=== PATIENT | female | born 1985 | race American Indian/Alaskan Native ===

== ENCOUNTER 2017-06-25 10:15 | Outpatient (CLI) | payer MEDICAID | END 2017-06-25 10:16 | disposition critical access hospital (66) | LOC: EMS 10:15 | PROVIDERS: ATTEND Surgery | DX: M79.622 Pain in left upper arm (principal); R07.89 Other chest pain; R11.10 Vomiting, unspecified | CPT/HCPCS: A0425; A0429 ==

== ENCOUNTER 2017-06-25 10:35 | Emergency (ER) | payer MEDICAID ==
[2017-06-25 11:25] LABS: HCT - HEMATOCRIT 34.1 % (37.0-47.0); HGB - HEMOGLOBIN 11.6 g/dL (12.0-16.0); MEAN CORPUSCULAR HEMOGLOBIN 29.5 pg (27.0-31.0); MEAN PLATELET VOLUME 8.3 fL (7.9-10.8); RED BLOOD COUNT 3.92 10^6/uL (4.20-5.40); WHITE BLOOD COUNT 9.9 x10^3/uL (4.8-10.8)
[2017-06-25 11:37] LABS: ALBUMIN/GLOBULIN RATIO 1.1 (1.0-2.2); BILIRUBIN,TOTAL 1.2 mg/dL (0.2-1.0); BUN - BLOOD UREA NITROGEN 17 mg/dL (6-20); CALCIUM 9.2 mg/dL (8.5-10.3); CARBON DIOXIDE - CO2 23 mmol/L (21-32); CHLORIDE 103 mmol/L (101-111); CREATININE 0.6 mg/dL (0.4-1.0); GFR - MDRD 117 (>89); GLUCOSE 89 mg/dL (70-100); LIPASE 27 U/L (22-51); POTASSIUM 3.3 mmol/L (3.5-5.0); SALICYLATE < 6.0 mg/dL; SODIUM 142 mmol/L (135-145); TOTAL PROTEIN 7.8 g/dL (6.7-8.2)
[2017-06-25 11:40] LABS: ACETAMINOPHEN < 10 ug/mL (10-30)
[2017-06-25] MEDS ORDERED: ONDANSETRON ODT 4 MG TABLET TL STA ×3 (11:40→16:16)
[2017-06-25] MEDS ORDERED: DEXAMETHASONE 10 MG/ML VIAL PO STA (11:46)
[2017-06-25] MEDS ORDERED: LORazepam 2 MG/ML VIAL IM STA (11:46)
--- NOTE | 2017-06-25 11:50 | ED Physician Documentation ---
History of Present Illness - Stated complaint Stated Complaint: L ARM CYST - Chief complaint Chief Complaint: General - History obtained from History obtained from: Patient, EMS - History of Present Illness Timing: How many days ago (3) - Additonal information Additional information: 32-year-old homeless heroin addicted female comes to the emergency department today with a red swollen lump on her left shoulder and feeling ill. She has recently developed congestion cough shortness of breath and loss of voice. She indicates that she has been in treatment and got out of treatment about 2 weeks ago. She admits to using methamphetamine today but denies use of narcotic today Review of Systems Constitutional: reports: Myalgias, Fatigue. denies: Fever Eyes: denies: Decreased vision Ears: denies: Ear pain Nose: reports: Rhinorrhea / runny nose, Congestion Throat: reports: Sore throat Cardiac: reports: Chest pain / pressure. denies: Palpitations Respiratory: reports: Dyspnea, Cough, Wheezing GI: reports: Abdominal Pain, Nausea, Vomiting : reports: Dysuria, Frequency Skin: reports: Lesions Musculoskeletal: reports: Extremity pain. denies: Neck pain, Back pain Neurologic: denies: Generalized weakness, Focal weakness, Numbness PD PAST MEDICAL HISTORY - Past Medical History Past Medical History: Yes - Past Surgical History General: Cholecystectomy - Present Medications Home Medications: Ambulatory Orders Medication Instructions Recorded Confirmed Amox/Clav 875/125 [Augmentin] 1 each PO Q12H #20 tablet 06/25/17 Lorazepam [Ativan] 1 mg PO Q6HR PRN #15 tablet 06/25/17 - Allergies Allergies/Adverse Reactions: Allergies Allergy/AdvReac Type Severity Reaction Status Date / Time trazodone Allergy Unknown Verified 06/25/17 10:49 - Social History Does the pt smoke?: Yes Does the pt drink ETOH?: No Does the pt have substance abuse?: Yes Substance Use and Type: Meth, Heroin PD ED PE NORMAL - Vitals Vital signs reviewed: Yes (hypertensive) - General General: Well developed/nourished, Other (32 y/o female wailing in pain and begging for help with a disorganized thought process. ) - HEENT HEENT: Atraumatic, PERRL, EOMI, Moist mucous membranes, Other (both TM's are inflamed the uvula is mildly inflamed) - Neck Neck: Supple, no meningeal sign, No bony TTP - Cardiac Cardiac: RRR, No murmur - Respiratory Respiratory: No respiratory distress, Clear bilaterally - Abdomen Abdomen: Soft, Non tender - Back Back: No CVA TTP, No spinal TTP - Derm Derm: Normal color, Warm and dry, No rash - Extremities Extremities: No deformity, No edema - Neuro Neuro: No motor deficit, No sensory deficit Eye Opening: Spontaneous Motor: Obeys Commands Verbal: Oriented GCS Score: 15 - Psych Psych: Normal mood, Normal affect Results - Vitals Vitals: Vital Signs - 24 hr 06/25/17 06/25/17 06/25/17 10:37 12:11 13:41 Temperature 36 C L 36.8 C 36.5 C Heart Rate 68 56 L 57 L Respiratory 20 20 16 Rate Blood Pressure 153/94 H 143/93 H 130/93 H O2 Saturation 96 99 98 06/25/17 06/25/17 06/25/17 14:39 16:08 16:54 Temperature 36.8 C 36.8 C Heart Rate 56 L 88 87 Respiratory 18 18 20 Rate Blood Pressure 143/98 H 145/100 H 134/93 H O2 Saturation 100 97 96 06/25/17 19:12 Temperature 36.5 C Heart Rate 55 L Respiratory 16 Rate Blood Pressure 138/92 H O2 Saturation 100 Oxygen O2 Source Room air - Labs Labs: Laboratory Tests 06/25/17 06/25/17 06/25/17 11:16 11:16 18:15 WBC 9.9 RBC 3.92 L Hgb 11.6 L Hct 34.1 L MCV 87.0 MCH 29.5 MCHC 34.0 RDW 13.0 Plt Count 250 MPV 8.3 Sodium 142 Potassium 3.3 L Chloride 103 Carbon Dioxide 23 Anion Gap 16.0 H BUN 17 Creatinine 0.6 Estimated GFR (MDRD) 117 Glucose 89 Calcium 9.2 Total Bilirubin 1.2 H AST 22 ALT 30 Alkaline Phosphatase 67 Total Protein 7.8 Albumin 4.0 Globulin 3.8 Albumin/Globulin Ratio 1.1 Lipase 27 Urine Color Urine Clarity Urine pH Ur Specific [place] Urine Protein Urine Glucose (UA) Urine Ketones Urine Occult Blood Urine Nitrite Urine Bilirubin Urine Urobilinogen Ur Leukocyte Esterase Urine RBC Urine WBC Ur Squamous Epith Cells Amorphous Sediment Urine Bacteria Ur Microscopic Review Urine Culture Comments Urine HCG, Qual Salicylates < 6.0 Urine Opiates Screen NEGATIVE Ur Oxycodone Screen NEGATIVE Urine Methadone Screen NEGATIVE Ur Propoxyphene Screen NEGATIVE Acetaminophen < 10 L Ur Barbiturates Screen NEGATIVE Ur Tricyclics Screen NEGATIVE Ur Phencyclidine Scrn NEGATIVE Ur Amphetamine Screen POSITIVE H U Methamphetamines Scrn POSITIVE H U Benzodiazepines Scrn POSITIVE H Urine Cocaine Screen NEGATIVE U Cannabinoids Screen NEGATIVE Ethyl Alcohol < 5.0 06/25/17 06/25/17 18:15 18:15 WBC RBC Hgb Hct MCV MCH MCHC RDW Plt Count MPV Sodium Potassium Chloride Carbon Dioxide Anion Gap BUN Creatinine Estimated GFR (MDRD) Glucose Calcium Total Bilirubin AST ALT Alkaline Phosphatase Total Protein Albumin Globulin Albumin/Globulin Ratio Lipase Urine Color DARK YELLOW Urine Clarity CLOUDY Urine pH 6.0 Ur Specific [place] 1.025 1.025 Urine Protein TRACE Urine Glucose (UA) NEGATIVE Urine Ketones >=80 H Urine Occult Blood TRACE-INTA Urine Nitrite POSITIVE H Urine Bilirubin NEGATIVE Urine Urobilinogen 1 (NORMAL) Ur Leukocyte Esterase TRACE H Urine RBC 6-10 H Urine WBC 6-10 H Ur Squamous Epith Cells FEW Squamous Amorphous Sediment Moderate Urine Bacteria Many H Ur Microscopic Review INDICATED Urine Culture Comments INDICATED Urine HCG, Qual NEGATIVE Salicylates Urine Opiates Screen Ur Oxycodone Screen Urine Methadone Screen Ur Propoxyphene Screen Acetaminophen Ur Barbiturates Screen Ur Tricyclics Screen Ur Phencyclidine Scrn Ur Amphetamine Screen U Methamphetamines Scrn U Benzodiazepines Scrn Urine Cocaine Screen U Cannabinoids Screen Ethyl Alcohol Procedures - Bedside sono Bedside sono by EMP: With use of bedside ultrasound the left shoulder mass is imaged there is no evidence of a fluid collection. PD MEDICAL DECISION MAKING - ED course Complexity details: reviewed results, re-evaluated patient, considered differential, d/w patient ED course: 32 y/o homeless female with a left shoulder cellulitis/abscess that is not ripe is altered when she arrives to the ED. She appears intoxicated on arrival. She is anxious and in pain and she is withdrawing. She is given zofran and ativan. She has BOM as well and she is given decadron 10mg PO and we have given ceftriaxone IM for the celluliltis. She has UTI as well. We will place her on some augmentin for the all three infections. During the patient's stay in the ED she arrived agitated and did well for hours with a 2mg dose of ativan IM. Over time she began to sober and had continued improvement. Her father was called for disposition and he was able to come to pick the patient up. Departure - Departure Disposition: 01 Home, Self Care Clinical Impression: Cellulitis and abscess of upper arm and forearm Otitis media Qualifiers: Otitis media type: suppurative Chronicity: acute Laterality: bilateral Recurrence: not specified as recurrent Spontaneous tympanic membrane rupture: without spontaneous rupture Qualified Code(s): H66.003 - Acute suppurative otitis media without spontaneous rupture of ear drum, bilateral Acute drug withdrawal syndrome Qualifiers: Complication of substance-induced condition: with unspecified complication Qualified Code(s): F19.239 - Other psychoactive substance dependence with withdrawal, unspecified Urinary tract infection Qualifiers: Urinary tract infection type: acute cystitis Hematuria presence: without hematuria Qualified Code(s): N30.00 - Acute cystitis without hematuria Condition: Stable Instructions: ED Staph Infec Abx Tx Only, ED Infec Skin Cellulitis, ED Otitis Media Acute Adult, ED UTI Cystitis Female Follow-Up: [facility] [Provider Group] Prescriptions: Lorazepam [Ativan] 1 mg PO Q6HR PRN #15 tablet PRN Reason: withdrawal symptoms Amox/Clav 875/125 [Augmentin] 1 each PO Q12H #20 tablet Discharge Date/Time: 06/25/17 19:41
[2017-06-25] MEDS ORDERED: CHERRY SYRUP 10 ML UDC PO ONE (11:56)
[2017-06-25] MEDS ORDERED: cefTRIAXone 1 GM VIAL IM STA (16:16)
[2017-06-25] MEDS ORDERED: LIDOCAINE 1% 2 ML VIAL ONE (16:29)
[2017-06-25 18:47] LABS: BILIRUBIN,URINE NEGATIVE (NEGATIVE); UA w/ MICROSCOPIC CHARGE YES
[2017-06-25 18:50] LABS: HCG UR QUAL NEGATIVE
[2017-06-25 18:53] LABS: UR CULTURE IF IND INDICATED
[2017-06-25] MEDS ORDERED: LORazepam 0.5 MG TABLET PO STA ×2 (18:58)
[2017-06-25 19:13] VITALS: BP 138/92
== END 2017-06-25 19:41 | disposition home or self-care (01) ==
LOC: ED 10:35
DX: L02.414 Cutaneous abscess of left upper limb (principal); L03.114 Cellulitis of left upper limb; H66.003 Acute suppurative otitis media without spontaneous rupture of ear drum, bilateral; N30.00 Acute cystitis without hematuria; F19.239 Other psychoactive substance dependence with withdrawal, unspecified; R45.1 Restlessness and agitation; F15.10 Other stimulant abuse, uncomplicated; Z72.0 Tobacco use; Z59.0 Homelessness
CPT/HCPCS: 36415; 80053; 80306; 80307; 80320; 80329; 81001; 81025; 83690; 85027; 87086; 96372; 99283; 99284; A9270; J2060; Q0162; 81003

== ENCOUNTER 2017-06-30 15:19 | Outpatient (CLI) | payer MEDICAID | END 2017-06-30 15:20 | disposition critical access hospital (66) | LOC: EMS 15:19 | PROVIDERS: ATTEND Surgery | DX: M79.622 Pain in left upper arm (principal); Z72.89 Other problems related to lifestyle | CPT/HCPCS: A0425; A0429 ==

== ENCOUNTER 2017-06-30 15:35 | Emergency (ER) | payer MEDICAID ==
[2017-06-30] MEDS ORDERED: SULFAMETH/TRIMETH DS 800/160 MG TABLET PO STA (16:01)
[2017-06-30] MEDS ORDERED: ONDANSETRON ODT 4 MG TABLET TL STA (16:01)
[2017-06-30] MEDS ORDERED: LORazepam 0.5 MG TABLET PO STA ×2 (16:01→23:08)
--- NOTE | 2017-06-30 16:02 | ED Physician Documentation ---
PD HPI NVD - Stated complaint Stated Complaint: GEN ILLNESS - Chief complaint Chief Complaint: General - History obtained from History obtained from: Patient, EMS - History of Present Illness Timing - onset: Today (feeling anxious, nauseated, and some shakiness c/w withdrawal from drugs. She says last use of drugs was yesterday (Heroin IV and smoked meth). Gets withdrawal symptoms significantly after 2 days without drugs and then cannot withstand symptoms and uses again. She says regular drug use for the past 2 months, frequent for almost 2 years prior to that. Last drug treatment was 2 years ago and was clean for just couple months. Had been having infection left shoulder recently too and this is improved but not completely better with still some drainage from it.) Timing - details: Gradual onset, Still present Associated symptoms: Loss of appetite, Other (nausea and shakiness.). No: Fever , Abdominal pain Contributing factors: Other (withdrawal from drugs (heroin and meth, last use yesterday).). No: Sick contact, Bad food, Diabetes Worsened by: Eating Similar symptoms before: Diagnosis (drug withdrawal) Recently seen: Emergency Dept Review of Systems Constitutional: denies: Fever, Chills Nose: denies: Rhinorrhea / runny nose, Congestion Throat: denies: Sore throat Cardiac: denies: Chest pain / pressure, Palpitations Respiratory: denies: Cough GI: reports: Nausea. denies: Abdominal Pain, Vomiting, Diarrhea : denies: Dysuria, Frequency, Discharge, Missed period Skin: reports: Lesions (left shoulder with some persistent mild drainage post I& D of abscess recently. Minimal redness of the area.). denies: Rash Musculoskeletal: denies: Neck pain, Back pain Neurologic: denies: Generalized weakness, Focal weakness, Numbness Endocrine: denies: Weight loss, Easy bruising / bleeding Immunocompromised: denies: Immunocompromised PD PAST MEDICAL HISTORY - Past Medical History Past Medical History: Yes Cardiovascular: None Respiratory: None Neuro: None Endocrine/Autoimmune: None - Past Surgical History General: Cholecystectomy - Present Medications Home Medications: Ambulatory Orders Medication Instructions Recorded Confirmed Amox/Clav 875/125 [Augmentin] 1 each PO Q12H #20 tablet 06/25/17 Lorazepam [Ativan] 1 mg PO Q6HR PRN #15 tablet 06/25/17 Lorazepam [Ativan] 1 mg PO Q8H PRN #20 tablet 06/30/17 Mupirocin 1 applic TP TID #15 oint...g. 06/30/17 Promethazine [Phenergan] 25 mg PO Q6H PRN #20 tab 06/30/17 Sulfamethox/Trimeth 800/160 1 each PO BID #10 tablet 06/30/17 [Bactrim Ds 800/160] cloNIDine [Catapres] 0.1 mg PO DAILY #6 tablet 06/30/17 - Allergies Allergies/Adverse Reactions: Allergies Allergy/AdvReac Type Severity Reaction Status Date / Time trazodone Allergy Unknown Verified 06/25/17 10:49 - Living Situation Living Arrangement: reports: Homeless - Social History Does the pt smoke?: Yes Smoking Status: Current every day smoker Does the pt drink ETOH?: No Does the pt have substance abuse?: Yes Substance Use and Type: Meth, Heroin - Family History Family history: reports: Non contributory PD ED PE NORMAL - Vitals Vital signs reviewed: Yes - General General: Alert and oriented X 3, No acute distress (but some slight anxiety), Well developed/nourished - HEENT HEENT: Ears normal, Pharynx benign - Neck Neck: Supple, no meningeal sign, No adenopathy - Cardiac Cardiac: RRR, No murmur - Respiratory Respiratory: Clear bilaterally - Abdomen Abdomen: Soft, Non tender - Female Female : Deferred - Rectal Rectal: Deferred - Back Back: No CVA TTP - Derm Derm: Normal color, Warm and dry, Other (left shoulder with minimal redness in small area (2-3 cm) without fluctuance; has small hole for drainage post I&D. No draiange right now. ) - Neuro Neuro: Alert and oriented X 3, No motor deficit, Normal speech - Psych Psych: Normal mood, Normal affect Results - Vitals Vitals: Vital Signs - 24 hr 06/30/17 06/30/17 06/30/17 15:39 17:16 20:52 Temperature 36.6 C Heart Rate 83 92 75 Respiratory 18 18 18 Rate Blood Pressure 132/84 H 115/84 H 110/68 O2 Saturation 100 100 99 Oxygen O2 Source Room air - Labs Labs: Laboratory Tests 06/30/17 06/30/17 06/30/17 16:40 16:40 17:55 WBC 6.9 RBC 3.95 L Hgb 11.5 L Hct 34.7 L MCV 87.8 MCH 29.1 MCHC 33.2 RDW 13.1 Plt Count 282 MPV 7.6 L Neut # 4.5 Lymph # 1.1 L [place] # 0.7 Eos # 0.5 Baso # 0.1 Absolute Nucleated RBC 0.00 Nucleated RBC % 0.0 Sodium 141 Potassium 3.5 Chloride 105 Carbon Dioxide 26 Anion Gap 10.0 BUN 7 Creatinine 0.5 Estimated GFR (MDRD) 144 Glucose 133 H Calcium 8.6 Total Bilirubin 0.3 AST 21 ALT 22 Alkaline Phosphatase 55 Total Protein 6.8 Albumin 3.3 Globulin 3.5 Albumin/Globulin Ratio 0.9 L Lipase 28 Urine Color Urine Clarity Urine pH Ur Specific [place] Urine Protein Urine Glucose (UA) Urine Ketones Urine Occult Blood Urine Nitrite Urine Bilirubin Urine Urobilinogen Ur Leukocyte Esterase Urine RBC Urine WBC Ur Squamous Epith Cells Amorphous Sediment Urine Bacteria Ur Microscopic Review Urine Culture Comments Urine HCG, Qual Salicylates < 6.0 Urine Opiates Screen NEGATIVE Ur Oxycodone Screen NEGATIVE Urine Methadone Screen NEGATIVE Ur Propoxyphene Screen NEGATIVE Acetaminophen < 10 L Ur Barbiturates Screen NEGATIVE Ur Tricyclics Screen NEGATIVE Ur Phencyclidine Scrn NEGATIVE Ur Amphetamine Screen POSITIVE H U Methamphetamines Scrn NEGATIVE U Benzodiazepines Scrn POSITIVE H Urine Cocaine Screen NEGATIVE U Cannabinoids Screen NEGATIVE Ethyl Alcohol < 5.0 06/30/17 17:55 WBC RBC Hgb Hct MCV MCH MCHC RDW Plt Count MPV Neut # Lymph # [place] # Eos # Baso # Absolute Nucleated RBC Nucleated RBC % Sodium Potassium Chloride Carbon Dioxide Anion Gap BUN Creatinine Estimated GFR (MDRD) Glucose Calcium Total Bilirubin AST ALT Alkaline Phosphatase Total Protein Albumin Globulin Albumin/Globulin Ratio Lipase Urine Color YELLOW Urine Clarity TURBID Urine pH 7.5 Ur Specific [place] 1.020 Urine Protein NEGATIVE Urine Glucose (UA) NEGATIVE Urine Ketones NEGATIVE Urine Occult Blood NEGATIVE Urine Nitrite NEGATIVE Urine Bilirubin NEGATIVE Urine Urobilinogen 1 (NORMAL) Ur Leukocyte Esterase TRACE H Urine RBC 0-5 Urine WBC 6-10 H Ur Squamous Epith Cells RARE Squamous Amorphous Sediment Marked Urine Bacteria Few Ur Microscopic Review INDICATED Urine Culture Comments INDICATED Urine HCG, Qual NEGATIVE Salicylates Urine Opiates Screen Ur Oxycodone Screen Urine Methadone Screen Ur Propoxyphene Screen Acetaminophen Ur Barbiturates Screen Ur Tricyclics Screen Ur Phencyclidine Scrn Ur Amphetamine Screen U Methamphetamines Scrn U Benzodiazepines Scrn Urine Cocaine Screen U Cannabinoids Screen Ethyl Alcohol PD MEDICAL DECISION MAKING - ED course Complexity details: reviewed results, re-evaluated patient (She has slept and felt okay while in ED after getting the Ativan PO. BP and HR okay on recheck. ) , considered differential, d/w patient, d/w [employer] consultant (Social Work is trying to get her into [facility], and they have bed available. They are reviewing the chart.), other (Patient accepted at [facility] and will need to provide taxi voucher from Nursing Sup to get her there, and provide some meds for overnight and Rxs for her withdrawal symptoms and skin infection. ) Departure - Departure Clinical Impression: Skin infection Drug withdrawal Qualifiers: Substance type: opioid Qualified Code(s): F11.23 - Opioid dependence with withdrawal Condition: Stable Record reviewed to determine appropriate education?: Yes Instructions: ED Withdrawal Narcotic Prescriptions: cloNIDine [Catapres] 0.1 mg PO DAILY #6 tablet Lorazepam [Ativan] 1 mg PO Q8H PRN #20 tablet PRN Reason: Anxiety Mupirocin 1 applic TP TID #15 oint...g. Promethazine [Phenergan] 25 mg PO Q6H PRN #20 tab PRN Reason: Nausea / Vomiting Sulfamethox/Trimeth 800/160 [Bactrim Ds 800/160] 1 each PO BID #10 tablet Comments: For the shoulder skin infection, clean it with soap and water twice daily and apply some mupirocin antibiotic ointment and covered with a dressing. Also take Bactrim twice daily for the next 5 days. Recheck if not completely healed during that time. For the substance abuse withdrawal (meth and heroin), take clonidine daily for the next week and also promethazine if needed for nausea. Use Ativan 1-2 mg initially every 8-12 hours and decrease to 1 mg twice a day when able to based on the withdrawal symptoms. The withdrawal should taper down and decrease over 3-5 days and he should be able to taper down the use of the Ativan during that time as well. Drink lots of fluids and stay well- hydrated. Eat well.
[2017-06-30 16:45] LABS: BASOPHILS # (AUTO) 0.1 10^3/uL (0.0-0.1); BASOPHILS % (AUTO) 0.7 %; EOSINOPHILS # (AUTO) 0.5 10^3/uL (0.0-0.7); EOSINOPHILS % (AUTO) 6.9 %; HCT - HEMATOCRIT 34.7 % (37.0-47.0); HGB - HEMOGLOBIN 11.5 g/dL (12.0-16.0); LYMPHOCYTES # (AUTO) 1.1 10^3/uL (1.5-3.5); LYMPHOCYTES % (AUTO) 16.3 %; MEAN CORPUSCULAR HEMOGLOBIN 29.1 pg (27.0-31.0); MEAN CORPUSCULAR HGB CONC 33.2 g/dL (32.0-36.0); MEAN CORPUSCULAR VOLUME 87.8 fL (81.0-99.0); MEAN PLATELET VOLUME 7.6 fL (7.9-10.8); MONOCYTES # (AUTO) 0.7 10^3/uL (0.0-1.0); NEUTROPHILS # (AUTO) 4.5 10^3/uL (1.5-6.6); NEUTROPHILS % (AUTO) 66.1 %; RED BLOOD COUNT 3.95 10^6/uL (4.20-5.40); RED CELL DISTRIBUTION WIDTH 13.1 % (12.0-15.0); UNCORRECTED WHITE BLOOD COUNT 6.9 x10^3/uL; WHITE BLOOD COUNT 6.9 x10^3/uL (4.8-10.8)
[2017-06-30 17:00] LABS: ALBUMIN/GLOBULIN RATIO 0.9 (1.0-2.2); BILIRUBIN,TOTAL 0.3 mg/dL (0.2-1.0); BUN - BLOOD UREA NITROGEN 7 mg/dL (6-20); CALCIUM 8.6 mg/dL (8.5-10.3); CARBON DIOXIDE - CO2 26 mmol/L (21-32); CHLORIDE 105 mmol/L (101-111); CREATININE 0.5 mg/dL (0.4-1.0); GFR - MDRD 144 (>89); GLUCOSE 133 mg/dL (70-100); LIPASE 28 U/L (22-51); POTASSIUM 3.5 mmol/L (3.5-5.0); SALICYLATE < 6.0 mg/dL; SODIUM 141 mmol/L (135-145); TOTAL PROTEIN 6.8 g/dL (6.7-8.2)
[2017-06-30 17:04] LABS: ACETAMINOPHEN < 10 ug/mL (10-30)
[2017-06-30 18:06] LABS: BILIRUBIN,URINE NEGATIVE (NEGATIVE); PH,URINE 7.5 PH (5.0-7.5)
[2017-06-30 18:08] LABS: HCG UR QUAL NEGATIVE; UA w/ MICROSCOPIC CHARGE YES
[2017-06-30 18:25] LABS: UR CULTURE IF IND INDICATED
[2017-06-30] MEDS ORDERED: ONDANSETRON ODT 4 MG Prepack 2 TL PRN (23:08)
[2017-06-30] MEDS ORDERED: cloNIDine 0.1 MG TABLET PO STA (23:09)
[2017-07-01 01:09] VITALS: BP 121/79
== END 2017-07-01 01:05 | disposition home or self-care (01) ==
LOC: EDUNIT# → ED 15:35
DX: L08.9 Local infection of the skin and subcutaneous tissue, unspecified (principal); F11.23 Opioid dependence with withdrawal; F15.90 Other stimulant use, unspecified, uncomplicated; F17.200 Nicotine dependence, unspecified, uncomplicated
CPT/HCPCS: 36415; 80053; 80306; 80307; 80320; 80329; 81001; 81025; 83690; 85025; 87086; 99283; 99284; A9270; Q0162; 81003